=== PATIENT | female | born 1955 | race Caucasian/White ===

== ENCOUNTER 2022-12-22 13:46 | Emergency (ER) | payer MEDICARE, SELFPAY ==
--- NOTE | ~2022-12-22 | XR_ITS ---
EXAM: XR knee RT 3V DATE: 12/22/2022 14:10 HISTORY: fall, right knee pain . COMPARISON: None available. FINDINGS: Decreased mineralization. No fracture or dislocation. No lytic or blastic lesion. Moderate tricompartmental osteoarthritis. No erosion or periosteal change. Soft tissues within normal limits. IMPRESSION: No acute osseous finding in the right knee. Reviewed, dictated and finalized at location K.
--- NOTE | 2022-12-22 13:58 | ED.LOWEXIN ---
HPI - Extremity Injury (Lower) General Chief Complaint: Extremity Injury, Lower Stated Complaint: Right Knee Injury Time Seen by Provider: 12/22/22 13:58 Source: patient, family and RN notes reviewed History of Present Illness HPI Narrative: 67 yo F presents to urgent care with complaints of right, posterior, knee pain. Pt states on Friday, she was getting into the car when she felt something in her right knee but after resting it the next day, the pain subsided. Then last night, she was reaching up into the closet and did a little hop and when she came down, she felt a sharp pain in her right knee again but much worse. Pt reports associated numbness and tingling in her toes. Reports worse pain when she applies pressure to her right foot. Denies any other injury. Pt states she iced and elevated her knee and took some Tylenol with some relief. Related Data Home Medications Medication Instructions Recorded Confirmed citalopram 20 mg tablet 20 mg PO DAILY 12/22/22 12/22/22 hydroxychloroquine 200 mg tablet 200 mg PO BID 12/22/22 12/22/22 meloxicam 15 mg tablet 15 mg PO DAILY 12/22/22 12/22/22 Allergies Allergy/AdvReac Type Severity Reaction Status Date / Time No Known Allergies Allergy Verified 12/22/22 14:05 Review of Systems Review of Systems: CONSTITUTIONAL: Denies fever, chills, or sweats. EYES: Denies visual changes, redness, or discharge. ENT: Denies otalgia and sore throat CARDIOVASCULAR: Denies chest pain, palpitations, or edema. RESPIRATORY: Denies cough or dyspnea. GASTROINTESTINAL: Denies abdominal pain, nausea, vomiting, or diarrhea. GENITOURINARY: Denies dysuria or hematuria. SKIN: Denies rash or itching. MUSCULOSKELETAL: right knee pain NEUROLOGIC: Has some numbness and tingling in her right toes Pertinent positives per HPI. PMFSH Comments At the time of my signature, I reviewed and agree with the nursing past medical, surgical, social, and family history. There is no relevant family history pertinent to the patient complaint. Exam Narrative: GENERAL: This is a well-nourished, well-developed patient, in no apparent distress. HEAD: normocephalic, atraumatic. EYES: Sclera clear/white. Vision is grossly intact. EARS: External ears normal, auditory canals clear and without drainage. Hearing grossly intact. NOSE: External nose normal with no obvious nasal discharge, nares without redness, no rhinorrhea. THROAT: Mucous membranes moist, posterior pharynx clear. NECK: Neck supple, non-tender without lymphadenopathy, masses or thyromegaly. CARDIOVASCULAR: Regular rate and rhythm without murmurs, gallops, or rubs. RESPIRATORY: Clear to auscultation. Breath sounds equal bilaterally. No wheezes, rales, or rhonchi. SKIN: warm, intact with no suspicious lesions or rash, good texture and turgor. NEURO: awake, alert, and oriented to person, place and time. There were no obvious focal neurologic abnormalities. EXTREMITIES: Pt has full ROM in right knee. Tenderness posterior right knee that radiates down calf when she applies pressure to her foot. Course Course Level of Care: Express Care Visit Vital Signs Vital signs: Vital Signs Temperature 98.6 F 12/22/22 14:05 Pulse Rate 74 12/22/22 14:05 Respiratory Rate 16 12/22/22 14:05 Blood Pressure 127/93 H 12/22/22 14:05 Pulse Oximetry 98 12/22/22 14:05 Oxygen Delivery Room Air 12/22/22 14:05 Temperature 98.6 F 12/22/22 14:05 Pulse Rate 74 12/22/22 14:05 Respiratory Rate 16 12/22/22 14:05 Blood Pressure 127/93 H 12/22/22 14:05 Pulse Oximetry 98 12/22/22 14:05 Oxygen Delivery Room Air 12/22/22 14:05 Reviewed MDM - Extremity Injury (Lower) MDM Narrative Medical decision making narrative: Use the RICE method at home. May take ibuprofen and/or Tylenol if needed. If symptoms persist in 1 week after conservative treatment, follow-up with specialist. Pt sees Dr. Delgado in [place] and plans on calling
[2022-12-22 14:05] VITALS: BP 127/93; PULSE 74; RESP 16; TEMP 37; O2SAT 98
== END 2022-12-22 14:43 | disposition home or self-care (01) ==
PROVIDERS: Emergency Provider Nurse Practitioner Family; PCP Internal Medicine
DX: S83.91XA Sprain of unspecified site of right knee, initial encounter (principal); Z79.899 Other long term (current) drug therapy; Z79.1 Long term (current) use of non-steroidal anti-inflammatories (NSAID); X58.XXXA Exposure to other specified factors, initial encounter
CPT/HCPCS: 73562; 99213; G0463